=== PATIENT | male | born 1990 ===

== ENCOUNTER 2017-04-12 15:15 | Emergency (ER) | payer OTHER ==
[2017-04-12 16:01] VITALS: BP 134/82
--- NOTE | 2017-04-12 16:46 | EDM.PDOC ---
ED HPI GENERAL MEDICAL PROBLEM - General Chief Complaint: Drug or Alcohol Abuse Stated Complaint: BROUGHT FROM HALFWAY Time Seen by Provider: 04/12/17 16:27 Source of Information: Reports: Patient, EMS History Limitations: Reports: No Limitations - History of Present Illness INITIAL COMMENTS - FREE TEXT/NARRATIVE: This patient was brought in by law-enforcement for a medical evaluation. The patient was arrested earlier today in position of some marijuana and Xanax possibly some opioids. Patient does have bipolar disorder and takes a lot of different medications but the nurse at the senior living noticed that he was lethargic - appearing and wanted him evaluated to determine if it is safer for him to be [facility]. The patient says he feels like his normal self. He says he is usually pretty sleepy because of his psych medicationsn senior living Right Chest Pain Score (Numeric/FACES): 7 - Related Data Home Meds: Home Meds Albuterol [IJD: Albuterol HFA] 1 inhalation ASDIRECTED 04/12/17 [History] ClonazePAM [KlonoPIN] 0.5 mg PO BID PRN 04/12/17 [History] Cyclobenzaprine [Flexeril] 10 mg PO TID 04/12/17 [History] Dicyclomine [Bentyl] 10 mg PO QID 04/12/17 [History] LORazepam 1 mg PO QID 04/12/17 [History] [place] Carbonate 300 mg PO BID 04/12/17 [History] Loratadine [Claritin] 10 mg PO DAILY 04/12/17 [History] OLANZapine [ZyPREXA] 5 mg PO BID 04/12/17 [History] Paliperidone [Invega] 12 mg PO DAILY 04/12/17 [History] Promethazine [Phenergan] 25 mg PO Q6H PRN 04/12/17 [History] Sertraline [Zoloft] 100 mg PO DAILY 04/12/17 [History] Zolpidem Tartrate [Ambien] 10 mg PO BEDTIME 04/12/17 [History] traZODone 300 mg PO BEDTIME 04/12/17 [History] Past Medical History Respiratory History: Reports: Asthma Musculoskeletal History: Reports: Other (See Below) Other Musculoskeletal History: 1 leg shorter than the other Psychiatric History: Reports: Addiction, Anxiety, Bipolar, Mood Swings, Schizophrenia Social & Family History - Tobacco Use Smoking Status *Q: Heavy Tobacco Smoker Years of Tobacco use: 12 Packs/Tins Daily: 1 - Recreational Drug Use Recreational Drug Use: Yes Drug Use in Last 12 Months: Yes Recreational Drug Type: Reports: Fentanyl, Marijuana/Hashish, Xanax ED ROS GENERAL - Review of Systems Review Of Systems: ROS reveals no pertinent complaints other than HPI. ED EXAM, BEHAVIORAL HEALTH - Physical Exam Exam: See Below Exam Limited By: No Limitations General Appearance: Alert (He seems a little listless but is not lethargic. He looks sleepy.), WD/WN, No Apparent Distress Eye Exam: Bilateral Eye: Normal Inspection, PERRL Ears: Normal External Exam Nose: Normal Inspection Throat/Mouth: Normal Oropharynx Head: Atraumatic Neck: Normal Inspection Respiratory/Chest: Lungs Clear Cardiovascular: Regular Rate, Rhythm GI/Abdominal: Non-Tender Extremities: Normal Inspection Neurological: Normal Mood/Affect, CN II-XII Intact (And), Normal Cognition, No Motor/Sensory Deficits Psychiatric: Normal Cognition, Normal Mood, Flat Affect (Affect seems just a little bit flat) Skin Exam: Warm, Dry COURSE, BEHAVIORAL HEALTH COMP - Course Vital Signs: Last Vital Signs Temp 36.4 C 04/12/17 16:03 Pulse 99 04/12/17 16:03 Resp 16 04/12/17 16:03 BP 134/82 04/12/17 16:03 Pulse Ox 95 04/12/17 16:03 Departure - Departure Time of Disposition: 16:44 Disposition: Home, Self-Care 01 Condition: fair Clinical Impression: Medical clearance for incarceration - Discharge Information Forms: ED Department Discharge Additional Instructions: This patient is medically cleared for incarceration. He is mildly sedated and it's believe due to his regular medications
== END 2017-04-12 16:54 | disposition home or self-care (01) ==
LOC: JP.ED 15:15
DX: Z02.89 Encounter for other administrative examinations (principal); J45.909 Unspecified asthma, uncomplicated; F17.210 Nicotine dependence, cigarettes, uncomplicated; Z79.899 Other long term (current) drug therapy
CPT/HCPCS: 99281; 99285